=== PATIENT | male | born 1975 | race Caucasian/White ===

== ENCOUNTER 2023-11-02 10:46 | Emergency (ER) | payer SELFPAY ==
[2023-11-02 12:00] LABS: #Basophils 0.03 10x3/uL (0.0-0.2); #Eosinphils 0.08 10x3/uL (0.0-0.5); #Monocytes 0.57 10x3/uL (0.0-1.1); #Neutrophils 3.63 10x3/uL (1.5-8.4); %Basophils 0.5 % (0.0-2.0); %Eosinophils 1.4 % (0.0-6.0); %Lymphocytes 26.1 % (18.0-47.0); %Monocytes 9.7 % (0.0-10.0); %Neutrophils 61.6 % (40.0-75.0); Hematocrit 46.3 % (38.8-50.0); Hemoglobin 16.5 g/dL (13.5-17.5); Mean Corpuscular HGB CONC 35.6 g/dL (32.0-36.0); Mean Corpuscular Hemoglobin 31.9 pg (27.0-33.0); Mean Corpuscular Volume 89.4 fL (81.2-95.1); Mean Platelet Volume 10.4 fL (7.4-10.4); Platelet Count 184 10x3/uL (150-450); RBC Distribution Width 11.9 % (11.5-14.5); Red Blood Cell (RBC) Count 5.18 10x6/uL (4.32-5.72); White Blood Cell (WBC) Count 5.9 10x3/uL (3.5-10.5)
[2023-11-02 12:24] LABS: ALT (SGPT) 28 U/L (8-55); AST (SGOT) 35 U/L (5-34); Albumin 4.1 g/dL (3.5-5.0); Alkaline Phosphatase 78 U/L (40-110); Anion Gap 22 mmol/L (10-20); BUN (Urea Nitrogen) 9 mg/dL (8.9-20.6); Bilirubin, Total 1.1 mg/dL (0.2-1.2); Calc. Creatinine Clearance 0 mL/min (70-130); Calcium 9.7 mg/dL (7.8-10.44); Carbon Dioxide 18 mmol/L (22-29); Chloride 98 mmol/L (98-107); Estimated GFR 110; Globulin 3.9 g/dL (2.4-3.5); Glucose 320 mg/dL (70-105); Potassium 4.1 mmol/L (3.5-5.1); Sodium 134 mmol/L (136-145)
[2023-11-02 12:28] LABS: Troponin I Less than 0.010 ng/mL (< 0.028)
[2023-11-02 12:34] LABS: Bilirubin Neg (Negative); Blood, Urine 25 (Negative); Glucose, Urine (Dipstick) >=1000 mg/dL (Negative); Ketone, Urine 150 mg/dL (Negative); Leukocyte Negative (Negative); Nitrite Negative (Negative); Protein, Urine (Dipstick) 15 mg/dl (Neg-Trace); Urobilinogen Normal mg/dL (Less than 2)
[2023-11-02 12:35] LABS: Clarity Clear (Clear)
[2023-11-02 12:42] LABS: Bacteria/HPF Rare-Few HPF (None Seen); CAUTI Indications for Culture Dysuria,urgency,freq; RBC/HPF 0-3 HPF (0-3); Squamous Epithelial 0-3 HPF (0-3); WBC/HPF 0-3 HPF (0-3)
[2023-11-02 12:43] LABS: Urine Culture Reflex No No
[2023-11-02 13:13] LABS: Actual Bicarbonate (HCO3v) 24.4 mEq/L (22-28); Analyzer IN Cardio CS ER; Base Excess -1.8 mEq/L (-2 - +2); Calcium, Ionized (venous) 1.19 mmol/L (1.16-1.32); Chloride (VBG) 96 mmol/L (98-106); Critical Notified Whom: TURAD; Hematocrit-VBG 49 % (42.0-52.0); Hemoglobin (Hb) 16.7 g/dL (13.1-17.2); Potassium (VBG) 4.49 mmol/L (3.70-5.30); Puncture Site Other Site; RapidComm Collect By CBN; Sodium 138 mmol/L (133-146); pH (venous) 7.339 (7.32-7.43)
[2023-11-02 15:25] LABS: Anion Gap 18 mmol/L (10-20); BUN (Urea Nitrogen) 8 mg/dL (8.9-20.6); Calc. Creatinine Clearance 0 mL/min (70-130); Calcium 8.6 mg/dL (7.8-10.44); Carbon Dioxide 21 mmol/L (22-29); Chloride 101 mmol/L (98-107); Estimated GFR 112; Glucose 229 mg/dL (70-105); Potassium 3.7 mmol/L (3.5-5.1); Sodium 136 mmol/L (136-145)
== END 2023-11-02 15:39 | disposition home or self-care (01) ==
LOC: CSHERS 10:46
DX: E11.9 Type 2 diabetes mellitus without complications (principal); R53.83 Other fatigue; R35.0 Frequency of micturition
CPT/HCPCS: 36415; 36416; 80053; 81001; 82010; 82805; 84443; 84484; 85025; 93005